=== PATIENT | female | born 1950 | race Caucasian/White ===

== ENCOUNTER → 2019-08-08 | Outpatient (CLI) | payer MEDICARE, OTHER ==
[~2019-08-08] MED LIST: BIEST/PROG/TEST; CALCIUM + D3 E1 EACH PO; Dhea Tablet1 EACH PO; Dyazide 37.5-21 EACH PO; FISH1000 PO; IMIP50 PO; METO100ER PO; ONE DAILY FOR1 EACH PO; VITAMIN D34000 UNIT PO
== END ==
LOC: LAB SHORT 07:06 → PLD 07:06
DX: D48.5 Neoplasm of uncertain behavior of skin (principal)
CPT/HCPCS: 88305

== ENCOUNTER → 2020-11-26 | Outpatient (CLI) | payer MEDICARE, OTHER ==
[~2020-11-26] MED LIST changes: +FISH OIL 1,2001 EAC7 PO
== END | disposition home or self-care (01) ==
LOC: LAB 14:01 → LAB SHORT 14:01
DX: R93.89 Abnormal findings on diagnostic imaging of other specified body structures (principal)
CPT/HCPCS: 88305

== ENCOUNTER 2021-01-21 13:28 | Day surgery (SDC) | payer MEDICARE, OTHER ==
[~2021-01-21] VITALS: Ht 157.5 cm; Wt 73.1 kg
--- NOTE | 2021-01-21 15:45 | NUR ---
01/21/21 1545 Medina Conley 1544 DOXYCYCLINE 200MG COMPLETED AND IV PUMP D/C.
== END 2021-01-21 15:47 | disposition home or self-care (01) ==
LOC: ORSCSDS 13:28
PROVIDERS: Obstetrics & Gynecology
PROC: 0UDB8ZX Extraction of Endometrium, Via Natural or Artificial Opening Endoscopic, Diagnostic (ICD-10-PCS; principal; 2021-01-21 15:00)
DX: N95.0 Postmenopausal bleeding (principal); N84.0 Polyp of corpus uteri; N97.9 Female infertility, unspecified; I10 Essential (primary) hypertension; Z79.899 Other long term (current) drug therapy
CPT/HCPCS: 88305; J2704; J3010; J7060; J7120

== ENCOUNTER 2021-08-21 06:49 | Day surgery (SDC) | payer MEDICARE, OTHER ==
[~2021-08-21] VITALS: Ht 157.5 cm; Wt 74.4 kg
== END 2021-08-21 08:55 | disposition home or self-care (01) ==
LOC: ORSCSDS 06:49
PROVIDERS: Surgery
PROC: 0DJD8ZZ Inspection of Lower Intestinal Tract, Via Natural or Artificial Opening Endoscopic (ICD-10-PCS; principal; 2021-08-21 08:00)
DX: Z12.11 Encounter for screening for malignant neoplasm of colon (principal); Z86.010 Personal history of colon polyps; I10 Essential (primary) hypertension; E78.5 Hyperlipidemia, unspecified; Z85.820 Personal history of malignant melanoma of skin; Z79.899 Other long term (current) drug therapy
CPT/HCPCS: J2704; J7120

== ENCOUNTER 2024-05-23 12:12 | Emergency (ER) | payer OTHER, MEDICARE ==
[~2024-05-23] VITALS: Ht 157.5 cm; Wt 65.8 kg
[2024-05-23 12:56] VITALS: BP 131/95
[2024-05-23] MEDS ORDERED: Ketorolac Tromethamine 15mg Vial IM ONE (13:40)
== END 2024-05-23 14:41 | disposition home or self-care (01) ==
LOC: ER 12:12
DX: S76.311A Strain of muscle, fascia and tendon of the posterior muscle group at thigh level, right thigh, initial encounter (principal); W01.0XXA Fall on same level from slipping, tripping and stumbling without subsequent striking against object, initial encounter; Z79.899 Other long term (current) drug therapy
CPT/HCPCS: 73552; 96372; 99283-25; J1885